=== PATIENT | male | born 1990 | race Caucasian/White ===

== ENCOUNTER 2016-04-23 10:37 | Emergency (ER) | payer BC ==
--- NOTE | 2016-04-23 10:41 | EDPHY ---
H & P HPI/ROS: CHIEF COMPLAINT: Status seizure? HISTORY OF PRESENT ILLNESS: The patient is a 26-year-old male who presents via EMS for possible status seizure. Per EMS he was found face-down in a field by PD. Bystanders reported he was wandering around looking confused before falling and beginning to seize. He was rigid on arrival by EMS and unable to answer questions. Paramedics describe a tonic contracture of the arms and legs. He received Versed 5 mg IM, followed by an additional dose of Versed 5 mg IM, followed by Valium 2 mg IV with little improvement. History extremely limited due to patient's clinical condition. REVIEW OF SYSTEMS: Unobtainable due to patient's clinical condition. PAST MEDICAL HISTORY: Received from the patient's family: Bipolar disorder ( on Lamictal and Sarepta), hypertension. No prior history of seizures. SOCIAL HISTORY: Lives in [place]. VITAL SIGNS: Reviewed by me GENERAL: Sonorous respirations, increased respiratory rate. No response to verbal. HEENT: Atraumatic. Eyes: No icterus, no injection. Pupils 6mm and sluggishly reactive. Roving gaze. Mouth: Blood around mouth. Diminished gag reflex. Neck: supple with no adenopathy. LUNGS: Clear to auscultation bilaterally, no wheezes, rhonchi or rales. CARDIAC: Extreme tachycardia. No rubs, murmurs or gallops. ABDOMEN: Soft, nontender, nondistended, bowel sounds normal. EXTREMITIES: No trauma. No edema. NEURO: Diminished gag reflex. Extensor posturing of the upper extremities bilaterally. Right greater than left. Tonic contracture of the right lower extremity. Left lower extremity is moving freely. No withdrawal to painful stimuli of the right lower extremity or the upper extremities. Bilateral upper extremities stiff, right greater than left. No verbal response. No eye opening. SKIN: Warm and dry, no rash. Portions of this note were transcribed by a rn medical inpatient services. I personally performed a history, physical exam, medical decision making, and confirmed accuracy of information the transcribed note. Source: EMS Exam Limitations: Clinical condition Constitutional: Initial Vital Signs Temperature (C) 37.2 C 04/23/16 10:37 Heart Rate 182 H 04/23/16 10:37 Respiratory Rate 35 H 04/23/16 10:37 Blood Pressure 189/102 H 04/23/16 10:37 O2 Sat (%) 96 04/23/16 10:37 O2 Delivery Mode Room Air O2 (L/minute) 15 Allergies/Adverse Reactions: No Known Allergies Allergy (Unverified 06/03/15 09:02) Home Medications: Medication Instructions Recorded Albuterol [Ventolin Hfa Inhaler] 2 puffs IH Q4 PRN #1 mdi 06/03/15 Amoxicillin/Clavulanate Pot 875 mg PO BID 10 Days 06/03/15 [Augmentin 875 MG TAB (RX)] Azithromycin [Zithromax 250 mg 1 dose PO DAILY #4 tab 06/03/15 tab(RX)] Sarepta Aspartate 06/03/15 Penicillin VK 06/03/15 LaMICtal 04/23/16 Medical Decision Making - Diagnostics EKG Interpretation: 12-LEAD EKG: Please see the full report in [facility]. My interpretation: Narrow complex, supraventricular tachycardia, rate 175 Imaging: Results: CT scan of the head and cervical spine were obtained. I viewed the images independently on the PACS system. I discussed the results of the study with the radiologist. Impression: No intracranial hemorrhage, no fractures, no acute findings. Please see the full radiology report. X-ray chest was obtained. I viewed the images myself on the PACS system. My interpretation of the images is: tube in good position, questionable right lower lobe infiltrate. The radiologist interpretation is pending at this time. Procedures: Procedure: Rapid sequence intubation. Indication for the procedure was status seizure, unresponsive, unable to protect airway. The patient was preoxygenated with 100% oxygen by face mask. The patient was given the following IV medications: Etomidate 25mg IV and Rocuronium 80mg IV. The patient was orally endotracheally intubated under direct visualization utilizing the glide scope with a 8.0 ETT. Breath sounds were auscultated equally bilaterally. Chest X-ray shows ETT in good position. The procedure was performed by myself, Dr. Escamilla. ED Course/Re-evaluation: I met EMS on arrival. 2mg IV Ativan administered after my initial exam. Heart rate 180. Blood pressure 189/109. Blood glucose 190. 1038: Respiratory therapy at bedside. Flight crew at bedside for possible transfer to [facility]. 1042: Patient intubated with etomidate and 80mg Rocuronium. 1050: Post-intubation x-ray obtained (see report for details). Pepe catheter placed. 1057: Heart rate still 174, consistently, despite fluids. 6 mg of adenosine administered with no response. 12 mg of adenosine administered with no response. Blood pressure is stable. Patient taken to CT scan. On return from CT, the patient's heart rate still remains in the 170 range. History now from the family is that he has been on propranolol for hypertension which has recently been changed. Patient received diltiazem 10 mg to control heart rate. IV Keppra and Ativan ordered. Patient's WBC 29.68. Urine tox is negative for drugs of abuse. Consulted with [facility]. Patient be transferred to [facility] intensive care unit for continuous EEG monitoring with respect to concerns for status epilepticus. He will be transferred by air ambulance. 1105: Case Management has consulted with the patient's parents. They report he has had no prior seizures. I discussed the patient's condition with the family including the mother, father , aunt, and friend. No history of cold or flu symptoms, no fevers. Patient was well yesterday. They do tell me that his sister has recently been discharged from [facility] following a diagnosis of autoimmune encephalitis. Patient has a low-grade temperature of 99.1. 2 g of ceftriaxone was administered to treat potential meningitis. Differential Diagnosis: After the history was obtained and physical exam performed, the following differential for the patient's presenting complaint was considered included but was not limited to hypoglycemia, electrolyte disturbances, intracranial hemorrhage, seizure, status epilepticus, tumor, drug or alcohol intoxication, drug or alcohol withdrawal, stroke, or TIA. Consult/Admit Bed Type: Dr. Loya, [facility] Neuro ICU. Critical Care Time: Critical care time spent by Dr. Andi buitrago exclusively with this patient was 45 minutes, exclusive of PA time and exclusive of procedures. The organ system at risk was the central nervous system and I intubated the patient for airway management, administered IV fluids, anti epileptics, antibiotics, blood pressure and heart rate control, and emergently transferred the patient to the Neurology ICU at [facility] for ongoing monitoring, especially continuous EEG monitoring. This was done to prevent worsening of the patients condition. - Data Points Laboratory Results: Laboratory Results 04/23/16 10:45 04/23/16 10:45 04/23/16 04/23/16 04/23/16 11:24 10:55 10:45 WBC RBC Hgb Hct MCV MCH MCHC RDW Plt Count MPV Neut % (Auto) Lymph % (Auto) [place] % (Auto) Eos % (Auto) Baso % (Auto) Nucleat RBC Rel Count Absolute Neuts (auto) Absolute Lymphs (auto) Absolute Monos (auto) Absolute Eos (auto) Absolute Basos (auto) Absolute Nucleated RBC Immature Gran % Seg Neutrophils % Band Neutrophils % Lymphocytes % Monocytes % Basophils % Immature Gran # Absolute Seg Neuts Absolute Band Neuts Absolute Lymphocytes Absolute Monocytes Absolute Basophils RBC/WBC/PLT Morphology Platelet Estimate Smear Review By PT INR APTT Puncture Site RIGHT RADIAL Patient Temperature 37.2 DEGREES DEGREES pCO2 48 mmHg H mmHg (34-38) pO2 84 mmHg H mmHg (65-75) Total CO2 18 mEq/L L mEq/L (23-27) ABG pH 7.17 L* (7.35-7.45) ABG PO2/FiO2 Ratio 84 RATIO RATIO ABG O2 Saturation 92 % % (92-95) ABG Base Excess -12.1 mEq/L L mEq/L (-2.5-2.5) O2 Concentration % 100 % % (0-100) Actual Respiration Rate 22 Set Respiration Rate 16 SIMV YES Tidal Volume 700 PEEP 5 Pressure Support 7 Sodium Potassium Chloride Carbon Dioxide Bicarbonate 17 mEq/L L mEq/L (22-26) Anion Gap BUN Creatinine Estimated GFR Glucose Calcium Creatine Kinase 163 IU/L IU/L (0-224) Troponin I Urine Opiates Screen NEGATIVE (NEGATIVE) Urine Barbiturates NEGATIVE (NEGATIVE) Ur Phencyclidine Scrn NEGATIVE (NEGATIVE) Ur Amphetamine Screen NEGATIVE (NEGATIVE) U Benzodiazepines Scrn NEGATIVE (NEGATIVE) Sarepta Urine Cocaine Screen NEGATIVE (NEGATIVE) U Marijuana (THC) Screen NON-NEGATIVE H (NEGATIVE) 04/23/16 04/23/16 04/23/16 10:45 10:45 10:45 WBC 29.68 10^3/uL H 10^3/uL (3.80-9.50) RBC 6.22 10^6/uL 10^6/uL (4.40-6.38) Hgb 17.6 g/dL H g/dL (13.7-17.5) Hct 54.3 % H % (40.0-51.0) MCV 87.3 fL fL (81.5-99.8) MCH 28.3 pg pg (27.9-34.1) MCHC 32.4 g/dL g/dL (32.4-36.7) RDW 13.4 % % (11.5-15.2) Plt Count 426 10^3/uL H 10^3/uL (150-400) MPV 9.8 fL fL (8.7-11.7) Neut % (Auto) Not Reported Lymph % (Auto) Not Reported [place] % (Auto) Not Reported Eos % (Auto) Not Reported Baso % (Auto) Not Reported Nucleat RBC Rel Count 0.0 % % (0.0-0.2) Absolute Neuts (auto) Not Reported Absolute Lymphs (auto) Not Reported Absolute Monos (auto) Not Reported Absolute Eos (auto) Not Reported Absolute Basos (auto) Not Reported Absolute Nucleated RBC 0.00 10^3/uL 10^3/uL (0-0.01) Immature Gran % Not Reported Seg Neutrophils % 67 % % Band Neutrophils % 4 % % Lymphocytes % 21 % % Monocytes % 7 % % Basophils % 1 % % Immature Gran # Not Reported Absolute Seg Neuts 19.89 10^/uL H 10^/uL (1.70-6.50) Absolute Band Neuts 1.19 10^3/uL H 10^3/uL (0.00-0.70) Absolute Lymphocytes 6.23 10^3/uL H 10^3/uL (1.00-3.00) Absolute Monocytes 2.08 10^3/uL H 10^3/uL (0.30-0.80) Absolute Basophils 0.30 10^3/uL H 10^3/uL (0.02-0.10) RBC/WBC/PLT Morphology NORMAL (NORMAL) Platelet Estimate INCREASED H (ADEQ) Smear Review By Pending PT 13.0 SEC SEC (12.0-15.0) INR 0.99 (0.83-1.16) APTT 20.0 SEC L SEC (23.0-38.0) Puncture Site Patient Temperature pCO2 pO2 Total CO2 ABG pH ABG PO2/FiO2 Ratio ABG O2 Saturation ABG Base Excess O2 Concentration % Actual Respiration Rate Set Respiration Rate SIMV Tidal Volume PEEP Pressure Support Sodium 144 mEq/L mEq/L (134-144) Potassium 4.4 mEq/L mEq/L (3.5-5.2) Chloride 107 mEq/L mEq/L (97-110) Carbon Dioxide 10 mEq/l L mEq/l (22-31) Bicarbonate Anion Gap 27 mEq/L H mEq/L (8-16) BUN 11 mg/dL mg/dL (7-23) Creatinine 1.2 mg/dL mg/dL (0.7-1.3) Estimated GFR > 60 Glucose 178 mg/dL H mg/dL (70-100) Calcium 10.3 mg/dL mg/dL (8.5-10.4) Creatine Kinase Troponin I 0.029 ng/mL ng/mL (0-0.034) Urine Opiates Screen Urine Barbiturates Ur Phencyclidine Scrn Ur Amphetamine Screen U Benzodiazepines Scrn Sarepta 1.0 mEq/L mEq/L (0.6-1.2) Urine Cocaine Screen U Marijuana (THC) Screen Medications Given: Discontinued Medications Adenosine (Adenosine) 6 mg IVP EDNOW ONE Stop: 04/23/16 11:05 Last Admin: 04/23/16 11:04 Dose: 6 mg Adenosine (Adenosine) 12 mg IVP EDNOW ONE Stop: 04/23/16 11:07 Last Admin: 04/23/16 11:06 Dose: 12 mg Diltiazem HCl (Cardizem 25 Mg/5 Ml Vial) 10 mg IVP EDNOW ONE Stop: 04/23/16 11:22 Last Admin: 04/23/16 11:25 Dose: 10 mg Etomidate (Etomidate) 20 mg IVP EDNOW ONE Stop: 04/23/16 11:05 Last Admin: 04/23/16 11:04 Dose: 20 mg Propofol (Diprivan 10 Mg/Ml (Premix)) 100 mls @ 0 mls/hr IV CONT EARNESTINE; Titrate PRN Reason: Protocol Stop: 10/20/16 11:29 Last Admin: 04/23/16 10:58 Dose: 100 mls Levetiracetam 1,000 mg/ Sodium (Chloride) 110 mls @ 440 mls/hr IV EDNOW ONE Stop: 04/23/16 11:44 Last Admin: 04/23/16 11:20 Dose: 110 mls Levetiracetam 1,000 mg/ Sodium (Chloride) 110 mls @ 440 mls/hr IV EDNOW ONE Stop: 04/23/16 11:27 Last Admin: 04/23/16 12:16 Dose: Not Given Phenytoin Sodium 1,000 mg/ (Sodium Chloride) 120 mls @ 144 mls/hr IV ONCE ONE Stop: 04/23/16 12:10 Last Admin: 04/23/16 11:36 Dose: 120 mls Lorazepam (Ativan Injection) 1 mg IVP EDNOW ONE Stop: 04/23/16 11:05 Last Admin: 04/23/16 11:28 Dose: 1 mg Lorazepam (Ativan Injection) 2 mg IVP EDNOW ONE Stop: 04/23/16 11:14 Last Admin: 04/23/16 11:13 Dose: 2 mg Rocuronium [place] (Zemuron) 80 mg IVP EDNOW ONE Stop: 04/23/16 11:05 Last Admin: 04/23/16 11:27 Dose: 80 mg Departure - Departure Disposition: [facility] Clinical Impression: Status epilepticus, Sinus tachycardia Altered mental status Qualifiers: Altered mental status type: coma Coma depth: [place] coma 3-8 Coma timing: at arrival to emergency department Qualified Code(s): R40.2432 - [place] coma scale score 3-8, at arrival to emergency department Hypertension Qualifiers: Hypertension type: unspecified secondary hypertension Qualified Code(s): I15.9 - Secondary hypertension, unspecified; I15 - Secondary hypertension Condition: Serious Referrals: Patient,NotPresent [Primary Care Provider] - As per Instructions Report Scribed for: Marta Escamilla Report Scribed by: Hayder Cavazos Date of Report: 04/23/16 Time of Report: 10:45
[2016-04-23] MEDS ORDERED: PROPOFOL/EMULSION 1,000 MG/100 ML BOTTLE IV ONE (10:44)
[2016-04-23] MEDS ORDERED: ADENOSINE 6 MG/2 ML VIAL ONE ×2 (10:52→10:55)
--- NOTE | 2016-04-23 10:55 | CPEKG ---
Heart Rate: 170 RR Interval: 353 QRSD Interval: 98 QT Interval: 312 QTC Interval: 525 P [place]: 0 QRS [place]: 99 T Wave [place]: 23 EKG Severity - ABNORMAL ECG - EKG Impression: SINUS TACHYCARDIA EKG Impression: VENTRICULAR PREMATURE COMPLEX EKG Impression: BORDERLINE RIGHT AXIS DEVIATION EKG Impression: PROLONGED QT INTERVAL Electronically Signed By: Marta Escamilla 24-Apr-2016 16:27:07
[2016-04-23 10:56] LABS: ADD DIFF? YES; ADD MORPH? NO; ADD SCAN? NO; ATYPICAL LYMPHOCYTE FLAG 0 (0-99); FRAGMENT RBC FLAG 0 (0-99); HEMATOCRIT 54.3 % (40.0-51.0); HEMOGLOBIN 17.6 g/dL (13.7-17.5); LEFT SHIFT FLG 10 (0-99); LIPEMIA HEMOLYSIS FLAG 80 (0-99); MEAN CELL HEMOGLOBIN 28.3 pg (27.9-34.1); MEAN CELL HEMOGLOBIN CONCENTR. 32.4 g/dL (32.4-36.7); MEAN CELL VOLUME 87.3 fL (81.5-99.8); MEAN PLATELET VOLUME 9.8 fL (8.7-11.7); PLATELET CLUMPS FLAG 10 (0-99); PLATELET COUNT 426 10^3/uL (150-400); RED BLOOD CELL COUNT 6.22 10^6/uL (4.40-6.38); RED CELL DISTRIBUTION WIDTH 13.4 % (11.5-15.2)
[2016-04-23] MEDS ORDERED: LORazepam 2 MG/ML INJ IVP ONE ×2 (11:04→11:13)
[2016-04-23] MEDS ORDERED: ETOMIDATE 20 MG/10 ML VIAL IVP ONE (11:04)
[2016-04-23] MEDS ORDERED: ROCURONIUM 100 MG/10 ML VIAL IVP ONE (11:04)
[2016-04-23] MEDS ORDERED: ADENOSINE 6 MG/2 ML VIAL IVP ONE ×2 (11:04→11:06)
[2016-04-23 11:12] LABS: INR 0.99 (0.83-1.16)
[2016-04-23] MEDS ORDERED: levETIRAcetam 1,000 MG in NS 100 ML IV ONE ×2 (11:13→11:30)
[2016-04-23] MEDS ORDERED: LORazepam 2 MG/ML INJ ONE (11:15)
[2016-04-23 11:18] LABS: ANION GAP 27 mEq/L (8-16); CALCIUM 10.3 mg/dL (8.5-10.4); CARBON DIOXIDE 10 mEq/l (22-31); CHLORIDE 107 mEq/L (97-110); CREATININE 1.2 mg/dL (0.7-1.3); GLOMERULAR FILTRATION RATE > 60; GLUCOSE 178 mg/dL (70-100); POTASSIUM 4.4 mEq/L (3.5-5.2); SODIUM 144 mEq/L (134-144)
[2016-04-23] MEDS ORDERED: DILTIAZEM 25 MG/5 ML VIAL IVP ONE ×2 (11:21)
[2016-04-23] MEDS ORDERED: PHENYTOIN SODIUM 1,000 MG in NS 100 ML IV ONE (11:21)
[2016-04-23 11:29] LABS: TROPONIN I 0.029 ng/mL (0-0.034)
[2016-04-23] MEDS ORDERED: PROPOFOL/EMULSION 100 ML IV SCH (11:30)
[2016-04-23] MEDS ORDERED: CEFTRIAXONE 1 GM/DEXTROSE/50 ML BAG IV ONE (11:35)
[2016-04-23 11:36] VITALS: O2SAT 97
[2016-04-23 11:36] LABS: BASE EXCESS -12.1 mEq/L (-2.5-2.5); BICARBONATE 17 mEq/L (22-26); MEASURED OXYGEN SATURATION 92 % (92-95); PCO2 48 mmHg (34-38); PO2 84 mmHg (65-75); TCO2 18 mEq/L (23-27)
[2016-04-23 11:40] LABS: O2 CONCENTRATIION 100 % (0-100); P/F RATIO 84 RATIO; PATIENT RATE 22; PRESSURE SUPPORT 7; SIMV YES
[2016-04-23] MEDS ORDERED: ACETAMINOPHEN 650 MG SUPP PR ONE (11:40)
[2016-04-23 11:49] LABS: PLATELET ESTIMATE INCREASED (ADEQ)
[2016-04-23 12:14] VITALS: BP 107/64; PULSE 116; RESP 25; TEMP 99.7
[2016-04-23] MEDS ORDERED: ETOMIDATE 40 MG/20 ML INJ ONE (12:29)
[2016-04-23] MEDS ORDERED: SUCCINYLCHOLINE CHLORIDE*ANESTHESIA ONLY*200 MG/10 ML SYR IVP ONE (12:30)
== END 2016-04-23 12:26 | disposition short-term general hospital (02) ==
LOC: EDUNIT#
DX: G40.901 Epilepsy, unspecified, not intractable, with status epilepticus (principal); R00.0 Tachycardia, unspecified; R40.2432 Glasgow coma scale score 3-8, at arrival to emergency department; I10 Essential (primary) hypertension
CPT/HCPCS: 80305; 82947-QW; 96374; J0153; J0330; J0696; J1953; J2704

== ENCOUNTER 2017-01-25 15:55 | Emergency (ER) | payer BC ==
[2017-01-25] MEDS ORDERED: NS 1,000 ML IV ONE (16:02)
--- NOTE | 2017-01-25 16:07 | CPEKG ---
Heart Rate: 91 RR Interval: 659 P-R Interval: 168 QRSD Interval: 86 QT Interval: 356 QTC Interval: 439 P [place]: 20 QRS [place]: 3 T Wave [place]: 52 EKG Severity - NORMAL ECG - EKG Impression: SINUS RHYTHM Electronically Signed By: Marck Lopez 25-Jan-2017 16:09:08
--- NOTE | 2017-01-25 16:10 | EDPHY ---
General - History Smoking Status: Never smoked Narrative: CHIEF COMPLAINT: Uncooperative M1 hold HISTORY OF PRESENT ILLNESS: Patient arrives by EMS with [employer] accompany him. He is reportedly on an M1 hold. Patient allegedly sent a cryptic message 2 friends that he will not discuss. The [facility] provider informed me that he sent a message that was vaguely threatening to the entire class. He showed of to his class none of his classmates where there. [facility] PD was involved due to this. He was evaluated by the idania provider there, who is completing an M1 hold this time. He suspects manic episode. The patient denies suicidal ideation. He denies homicidal ideation or harm toward those in his class. He said that the time he did not recognize normal is statement was, but now he recognizes that this was an ill advised threats. He was reportedly very combative once the informed him that he was on a hold. He reportedly received 5 mg of Valium IM x2. He then received 5 mg of Versed IV. He calm somewhat but not completely. He does have history of bipolar disorder. He is on multiple medications for this. He reportedly has been taking them. No other associated complaints or modifying factors PSYCHIATRIC DIAGNOSES: Bipolar disorder, anxiety M1/DETAINER: Currently being completed by IDANIA at [facility] REVIEW OF SYSTEMS: Ten systems reviewed and are negative unless otherwise noted in the HPI EXAMINATION General Appearance: Alert, no distress, agitated Head: normocephalic, atraumatic Eyes: Pupils equal and round, no conjunctival pallor or injection ENT, Mouth: Mucous membranes moist. Airway is patent Neck: Normal inspection, supple, non-tender Respiratory: Lungs are clear to auscultation. No wheezing, rhonchi or crackles Cardiovascular: Tachycardic rate. Regular rhythm. Gastrointestinal: Abdomen is soft and nontender. No distention. No tympany. No rigidity. Back: non-tender, no bony abnormalities Neurological: A&O, nonfocal, normal gait Skin: Warm and dry, no rash. Onychomycosis of the left great toe Extremities: Nontender, no pedal edema Psychiatric: Agitated. Denies suicidal ideation. Denies homicidal ideation. DIFFERENTIAL DIAGNOSES: Including but not limited to bipolar disorder, manic episode, acute psychosis, lithium toxicity MDM: 4:03 p.m. M1 hold due to psychotic behavior pre hospital. Patient exhibits manic episode. Patient is bipolar disorder on multiple medications. Denies suicidal ideation. He was reportedly very aggressive pre-hospital once he was told that he is being placed on an M1 hold. He received 5 mg of Valium x2, and then 5 mg of Versed EN route. He still somewhat agitated but not combative during my examination. Proceed with medical clearance and evaluation. 4:55 p.m. I was notified by the medic that the patient did not actually receive versed in route. He did received 10 mg of Valium and accidentally received fentanyl 100 mcg as opposed to Versed. The at this time is laboratory studies are so far unremarkable. No lithium toxicity. His vital signs have normalized. He is not combative. Still awaiting the urinalysis for medical clearance and then psychiatric evaluation. I discussed the case with Dr. Lopez. He will assume care of the patient at this time. Please see his note for final disposition. EKG interpretation: Dr. Lopez Sinus tachycardia without ischemia or conduction delay SUPERVISION: Patient was evaluated and examined in conjunction with my secondary supervising physician as documented. We have both examined the patient. (Ricky Qureshi) Medical Decision Makin: According the patient's medical records in paper in the room he is not supposed to get Zyprexa as makes him angry. Additionally does not do well with Seroquel and Depakote. This was brought to my attention by his mom. I do not have records of this on the paperwork that she provided now. 0242: Patient is getting acutely agitated and aggressive. I have ordered him 2 mg IV Ativan. (John Jones) I took over care of this patient at 7:00 a.m.. This patient is here for acute syd, homicidal threats. He has a history of bipolar disorder. He has been given IV Ativan secondary to agitation while in our emergency department. He has been accepted for transfer to [facility] psychiatric facility. I filled out the appropriate transfer paperwork. His remaining emergency department course under my care has been uneventful. He was transferred in good condition. (Kavin Kiser) - Diagnostics EKG Interpretation: 12 lead EKG for tachycardia, official reading in [facility]; sinus rhythm rate 91 otherwise normal. (Marck Lopez) Discussion: PHYSICIAN DOCUMENTATION: The patient was evaluated and managed by the Physician [employer] and myself. I have reviewed the chart and agree with the findings and plan of care as documented. In addition, I examined the patient myself at 1710. History confirmed as history of bipolar disorder. Physical findings as follows: Patient is alert awake and has fluent speech, temperature 36.4 degrees. 172: Discussed with Dr. Johnson, has previously been psychotic during finals/ end of semester. Responds well to benzodiazepines and risperdal, not zyprexa. Recommends hospitalization for inpatient psychiatry. Patient refused 2 appointments with his psychiatrist today, ripped up the treatment plan and went to a bar today, declined to see his physician in the office. The patient had a medical screening evaluation performed. There does not appear to be an acute emergent medical or surgical condition which would preclude psychiatric evaluation at this time. Mental health evaluation is requested at 190. 2056: Had [facility] evaluation, plan is for inpatient psychiatric hospitalization. This is the recommendation of his personal psychiatrist. Signed out to [facility] at 2300 with inpatient placement pending. I am the secondary supervising physician. (Marck Loepz) - Objective Vital Signs: Initial Vital Signs Heart Rate 108 H 01/25/17 16:00 Respiratory Rate 22 H 01/25/17 16:00 Blood Pressure 140/89 H 01/25/17 16:00 O2 Sat (%) 96 01/25/17 16:00 O2 Delivery Mode Room Air Allergies/Adverse Reactions: divalproex sodium [From Depakote] Allergy (Verified 01/26/17 02:58) olanzapine [From Zyprexa] Allergy (Verified 01/26/17 02:58) quetiapine [From Seroquel] Allergy (Verified 01/26/17 02:58) Home Medications: Medication Instructions Recorded [facility] Carbonate ER [Lithobid 300 600 mg PO BID 01/25/17 mg (*)] OXcarbazepine [Trileptal 300mg (*)] 300 mg PO BID 01/25/17 Laboratory Results: Laboratory Results 01/25/17 16:00 01/25/17 16:00 Medications Given: Discontinued Medications Sodium Chloride (Ns) 1,000 mls @ 0 mls/hr IV EDNOW ONE; Wide Open PRN Reason: Protocol Stop: 01/25/17 16:03 Last Admin: 01/25/17 16:06 Dose: 1,000 mls Lorazepam (Ativan) 1 mg PO EDNOW ONE Stop: 01/25/17 23:59 Last Admin: 01/26/17 00:00 Dose: 1 mg Lorazepam (Ativan) 1 mg PO ONCE ONE Stop: 01/26/17 02:07 Last Admin: 01/26/17 02:09 Dose: 1 mg Lorazepam (Ativan Injection) 2 mg IVP EDNOW ONE Stop: 01/26/17 02:41 Last Admin: 01/26/17 02:43 Dose: 2 mg Olanzapine (Olanzapine) 5 mg PO ONCE ONE Stop: 01/26/17 01:53 Last Admin: 01/26/17 01:58 Dose: 5 mg Departure - Departure Disposition: Other Psych, Not Epi Clinical Impression: Manic episode, Bipolar 1 disorder Referrals: Patient,NotPresent [Unknown] - As per Instructions
[2017-01-25 16:14] LABS: % IMMATURE GRANULYOCYTES 0.5 % (0.0-1.1); ABSOLUTE IMMATURE GRANULOCYTES 0.07 10^3/uL (0.00-0.10); ADD DIFF? NO; ADD MORPH? NO; ADD SCAN? NO; ATYPICAL LYMPHOCYTE FLAG 0 (0-99); FRAGMENT RBC FLAG 0 (0-99); HEMOGLOBIN 17.8 g/dL (13.7-17.5); LEFT SHIFT FLG 0 (0-99); LIPEMIA HEMOLYSIS FLAG 90 (0-99); MEAN CELL HEMOGLOBIN 29.2 pg (27.9-34.1); MEAN CELL HEMOGLOBIN CONCENTR. 34.2 g/dL (32.4-36.7); MEAN CELL VOLUME 85.4 fL (81.5-99.8); PLATELET CLUMPS FLAG 0 (0-99); PLATELET COUNT 302 10^3/uL (150-400); RED BLOOD CELL COUNT 6.09 10^6/uL (4.40-6.38); RED CELL DISTRIBUTION WIDTH 13.6 % (11.5-15.2)
[2017-01-25 16:26] LABS: ANION GAP 18 mEq/L (8-16); CALCIUM 10.2 mg/dL (8.5-10.4); CARBON DIOXIDE 21 mEq/l (22-31); CHLORIDE 105 mEq/L (97-110); CREATININE 0.9 mg/dL (0.7-1.3); ETHANOL SERUM 38 mg/dL (0-10); GLOMERULAR FILTRATION RATE > 60; GLUCOSE 81 mg/dL (70-100); LITHIUM 0.6 mEq/L (0.6-1.2); POTASSIUM 4.5 mEq/L (3.5-5.2); SALICYLATE < 1.0 mg/dL (2.0-20.0); SODIUM 144 mEq/L (134-144)
[2017-01-25 23:43] VITALS: RESP 16
[2017-01-25] MEDS ORDERED: LORazepam 1 MG TAB PO ONE (23:58)
[2017-01-26] MEDS ORDERED: diphenhydrAMINE 25 MG CAP PO ONE (00:44)
[2017-01-26] MEDS ORDERED: OLANZapine 5 MG TAB PO ONE (01:52)
[2017-01-26] MEDS ORDERED: LORazepam 1 MG TAB PO ONE (02:06)
[2017-01-26] MEDS ORDERED: LORazepam 2 MG/ML INJ IVP ONE ×2 (02:40→07:44)
[2017-01-26] MEDS ORDERED: LORazepam 2 MG/ML INJ ONE ×2 (02:41→07:37)
[2017-01-26 07:48] VITALS: BP 146/85; PULSE 84; TEMP 97.3; O2SAT 96
== END 2017-01-26 10:00 ==
LOC: EDUNIT#
DX: F31.10 Bipolar disorder, current episode manic without psychotic features, unspecified (principal); E86.9 Volume depletion, unspecified
CPT/HCPCS: 80305; 96374; G0480; J2060